=== PATIENT | female | born 1990 | race Hispanic/Latino ===

== ENCOUNTER 2023-05-14 14:50 | Inpatient (IN) | payer BC ==
[2023-05-14 15:20] VITALS: BMI 27.6
[2023-05-14] MEDS ORDERED: Methylergonovine 0.2 MG/ML VIAL IM PRN ×2 (15:40→20:53)
[2023-05-14] MEDS ORDERED: Diphenoxylate HCl/Atropine Tablet PO PRN (15:40)
[2023-05-14] MEDS ORDERED: Butorphanol Tartrate 1 MG/ML VIAL SLOW IVP PRN (15:40)
[2023-05-14] MEDS ORDERED: Carboprost 250 MCG/ML AMP IM PRN (15:40)
[2023-05-14] MEDS ORDERED: Ondansetron PF 4 MG/2 ML Vial IVP PRN ×2 (15:40→20:53)
[2023-05-14] MEDS ORDERED: hydrALAZINE 20 MG/ML VIAL SLOW IVP PRN (15:40)
[2023-05-14] MEDS ORDERED: Misoprostol 200 MCG TAB PR PRN (15:40)
[2023-05-14] MEDS ORDERED: Ibuprofen 800 MG TAB PO PRN (15:40)
[2023-05-14] MEDS ORDERED: Lidocaine 1% (PF) 30 ML VIAL SC PRN (15:40)
[2023-05-14] MEDS ORDERED: Promethazine HCl 25 MG/ML VIAL IM PRN (15:40)
[2023-05-14] MEDS ORDERED: fentaNYL 50 mcg/mL 1 mL Vial SLOW IVP PRN (15:40)
[2023-05-14] MEDS ORDERED: Tranexamic Acid 1,000 MG/10 ML VIAL IVP PRN (15:40)
[2023-05-14] MEDS ORDERED: Acetaminophen 500 MG TAB PO PRN (15:40)
[2023-05-14] MEDS ORDERED: Docusate 100 MG CAP PO PRN (15:40)
[2023-05-14] MEDS ORDERED: NS w/ Oxytocin 30 units 500 ML IV SCH ×4 (15:45→20:53)
[2023-05-14] MEDS ORDERED: Lactated Ringer's 1,000 ML IV SCH ×2 (15:45)
[2023-05-14 16:13] LABS: Hematocrit 33.8 % (34.9-44.5); Hemoglobin 11.5 g/dL (12.0-15.5); Mean Corpuscular Hemoglobin 29.9 pg (27.0-33.0); Mean Platelet Volume 10.3 fl (7.4-10.4); Platelet Count 247 10x3/uL (150-450); RBC Distribution Width 12.6 % (11.5-14.5); Red Blood Cell (RBC) Count 3.84 10x6/uL (3.90-5.03); White Blood Cell (WBC) Count 7.1 10x3/uL (3.5-10.5)
[2023-05-14 16:43] LABS: HBSAg Index 0.16 S/CO (0-0.99); Hep B Surf Ag - L&D Non-Reactive S/CO (NonReactive); Syphilis Antibody Nonreactive (Nonreactive); Syphilis Antibody Index 0.14 S/CO (<1.00 Non-Reactive)
[2023-05-14] MEDS ORDERED: Lanolin Ointment 7 GM TUBE TOP PRN (20:53)
[2023-05-14] MEDS ORDERED: diphenhydrAMINE 25 MG CAP PO PRN (20:53)
[2023-05-14] MEDS ORDERED: Preparation H Ointment 28 GM TUBE PR PRN (20:53)
[2023-05-14] MEDS ORDERED: Milk Of Magnesia 30 ML UDCUP PO PRN (20:53)
[2023-05-14] MEDS ORDERED: Bisacodyl 10 MG SUPP PR PRN (20:53)
[2023-05-14] MEDS ORDERED: Boostrix 0.5 ML (Tdap) VIAL (>/=7 yrs of age) IM ONE (20:53)
[2023-05-14] MEDS ORDERED: Benzocaine-Menthol 82.5 ML CAN TOP PRN (20:53)
[2023-05-14] MEDS ORDERED: Misoprostol 200 MCG TAB VAG PRN (20:53)
[2023-05-14] MEDS ORDERED: Ibuprofen 800 MG TAB PO SCH (22:00)
[2023-05-15] MEDS: Ibuprofen 800 MG TAB PO SCH ×3 (01:09→18:09)
[2023-05-15] MEDS: Ferrous Sulfate 325 MG TAB PO SCH ×2 (08:23→13:49)
[2023-05-15] MEDS ORDERED: Prenatal Vitamin 1 TAB PO SCH (09:00)
[2023-05-15 15:27] VITALS: BP 105/52; TEMP 99
== END 2023-05-15 19:43 | disposition home or self-care (01) | DRG 807 ==
LOC: CSHLD/OP 14:50 → CSHLD 15:28 → CSHPP 19:35
PROVIDERS: ADMIT Obstetrics & Gynecology; ATTEND Obstetrics & Gynecology
PROC: 10E0XZZ Delivery of Products of Conception, External Approach (ICD-10-PCS; principal; 2023-05-14)
DX: O99.344 Other mental disorders complicating childbirth (principal); Z37.0 Single live birth; Z3A.38 38 weeks gestation of pregnancy; F41.9 Anxiety disorder, unspecified; F32.A Depression, unspecified; Z90.79 Acquired absence of other genital organ(s)
CPT/HCPCS: 36415; 85027; 86780; 86850; 86900; 86901; 87340; 99285